=== PATIENT | female | born 1985 | race Hispanic/Latino ===

== ENCOUNTER 2017-09-17 13:52 | Day surgery (SDC) | payer MEDICAID, OTHER ==
[2017-09-17 14:29] VITALS: BP 120/71; TEMP 98.5; BMI 30.7
--- NOTE | 2017-09-17 14:52 | PDOC.LDHP ---
Labor and Delivery H&P Chief complaint: loss of fluid HPI: 32 yo at 39.0 wk by LMP/10.2 wk sono. Presents with CC of LOF that occurred at approximately 0700 today. Report movement and occasional contractions. Denies bloody discharge. No other concerns. complicated by MDD with self harm behavior and hx macrosomnia that resolved at 34.4 wk gestation. EFW at that time was 39.9%. States she was going through a divorce and custody issues during this . Current gestational age (weeks): 39 Due date: 09/24/17 Dating criteria: last menstrual period, first trimester ultrasound (10.2) Grav: 3 Para: 2 OB History Details: 2 prior vaginal deliveries. Current complications: none Abnormal US findings: Yes Past Medical History: MDD Current medications: pre- vitamins Previous surgical history: none Social history: none - Physical Exam Vital signs reviewed and normal: yes General: NAD, resting Heart: other Lungs: nonlabored breathing Abdomen: other Extremeties: trace edema FHT: category 2 (baseline 160, moderate variability, positive accel. No decel. borderline tachycardia with prolonged accelerations.) [place] contractions every: every 8-10 min - Vaginal Exam cm dilated: 3 Effacement: 50% Station: -3 - OB Labs Blood type: O RH: positive Antibody Screen: negative HIV: negative RPR: negative HEPSAg: negative 1 hour GCT: negative GBS: positive Urine drug screen: not done Rubella: immune - Assessment L&D Assessment: term rupture in membranes (r/o ROM.) - Plan -: Amnisure negative. Will order BPP and bolus LR 1L. <Gurvinder Gaspar - Last Filed: 09/17/17 14:47> <Jazmyn Salinas - Last Filed: 09/17/17 18:05> Allergies/Adverse Reactions: Allergies Allergy/AdvReac Type Severity Reaction Status Date / Time No Known Allergies Allergy Verified 09/17/17 14:29 Attending Addendum - Attending Addendum Date/Time: 09/17/17 1800 I personally evaluated the patient and discussed the management with Dr. Gaspar and Dr. Aguilar I agree with the History, Examination, Assessment and Plan documented above with any addition or exceptions noted below. 32 yo female at 39.0 wks presents for evaluation of ROM. Amnisure negative. BESS 8.8 cm. Speculum positive for lavell. No pooling. No ferning. FHT initially mild tachycardia to 165. IVF bolus x2 improved rate to 155. BPP 8/ 8. + movement. UDS negative. Significant bilateral edema. Urine protein negative. BP WNL. CMP pending for renal function. Ok for dc to home with precautions after CMP. Repeat SVE. Needs close follow up next week. AlinaMD <Jazmyn Salinas - Last Filed: 09/17/17 18:05>
[2017-09-17 14:59] LABS: Amnisure Test No Membranes Rupture (No Rupture)
[2017-09-17 15:00] LABS: Amnisure Internal Control QC ACCEPTABLE (ACCEPTABLE)
[2017-09-17] MEDS: Lactated Ringer's 1,000 ML IV SCH ×2 (15:15→15:55)
[2017-09-17] MEDS ORDERED: Lactated Ringer's 1,000 ML IV SCH (16:00)
--- NOTE | 2017-09-17 16:09 | ULT ---
NONSTRESS BIOPHYSICAL PROFILE: 09/17/17 HISTORY: Category II strip. COMPARISON: None. TECHNIQUE: Nonstress biophysical profile is performed. FINDINGS: Single intrauterine gestation. Cephalic presentation. Anterior placenta. Current study is not tailore d to assess for the presence or absence of previa. heart tones at the rate of 165 beats per minute. Amniotic fluid index is 8.8 cm. NONSTRESS BIOPHYSICAL PROFILE: movement - 2 tone - 2 breathing - 2 Amniotic fluid - 2 Total score 8 out of 8. IMPRESSION: Nonstress biophysical profile with a total score of 8 out of 8. POS: [facility]
[2017-09-17] MEDS ORDERED: hydrOXYzine 10 MG TAB PO SCH (17:00)
[2017-09-17 17:22] LABS: Bilirubin Negative (Negative); Blood, Urine Negative (Negative); Clarity CLEAR (Clear); Glucose, Urine (Dipstick) Negative (Negative); Nitrite Negative (Negative); Protein, Urine (Dipstick) Negative (Neg-Trace); Specific Gravity, Urine 1.014 (1.002-1.036)
[2017-09-17 17:27] LABS: Bacteria/HPF None Seen HPF (None Seen); Hyaline Casts/LPF 0-3 HYALINE CAST LPF (0-3 Hyaline); Pathc Cast-AUWi Flag 0.14 (0-2.49); RBC/HPF None Seen HPF (0-3); Squamous Epithelial 0-3 HPF (0-3)
[2017-09-17 17:33] LABS: Amphetamine Not Detected (NotDetected); Barbiturates Screen Not Detected (NotDetected); Benzodiazepine Screen Not Detected (NotDetected); Cocaine Metabolite Screen Not Detected (NotDetected); Medtox Control Line Valid? VALID (VALID); Medtox Reader # READER 4; Methadone Not Detected (NotDetected); Methamphetamine Not Detected (NotDetected); Opiate Screen Not Detected (NotDetected); Oxycodone Screen Not Detected (NotDetected); Phencyclidine (PCP) Not Detected (NotDetected); THC/Cannabinoid Screen Not Detected (NotDetected); Tricyclic Screen Not Detected (NotDetected)
[2017-09-17 17:37] LABS: Leukocyte Moderate (Negative); WBC/HPF 0-3 HPF (0-3)
[2017-09-17 19:09] LABS: Hemoglobin 8.6 g/dL (12.0-16.0); Mean Corpuscular HGB CONC 31.5 g/dL (32.0-36.0); Mean Corpuscular Hemoglobin 22.6 pg (27.0-31.0); Mean Corpuscular Volume 71.9 fL (78.0-98.0); Mean Platelet Volume 9.8 fL (7.4-10.4); Platelet Count 348 thou/uL (130-400); RBC Distribution Width 16.4 % (11.5-14.5); Red Blood Cell (RBC) Count 3.78 mill/uL (4.20-5.40); White Blood Cell (WBC) Count 7.5 thou/uL (4.8-10.8)
[2017-09-17 19:42] LABS: ALT (SGPT) 7 U/L (8-55); AST (SGOT) 15 U/L (5-34); Albumin 3.4 g/dL (3.5-5.0); Alkaline Phosphatase 278 U/L (40-150); Anion Gap 13 mmol/L (10-20); BUN (Urea Nitrogen) 10 mg/dL (7.0-18.7); Bilirubin, Total 0.4 mg/dL (0.2-1.2); Calc. Creatinine Clearance 156 mL/min (70-130); Calcium 8.5 mg/dL (7.8-10.44); Carbon Dioxide 20 mmol/L (22-29); Chloride 108 mmol/L (98-107); Estimated GFR-MDRD Greater than 90; Globulin 3.3 g/dL (2.4-3.5); Glucose 71 mg/dL (70-105); Potassium 4.3 mmol/L (3.5-5.1); Protein, Total 6.7 g/dL (6.0-8.3); Sodium 137 mmol/L (136-145)
[2017-09-17] MEDS ORDERED: Clotrimazole 2% 3 Day Vag Cr 22.2 GM TUBE VAG SCH (21:00)
== END 2017-09-17 18:35 | disposition home or self-care (01) ==
LOC: L&D/OP 13:52
PROVIDERS: ATTEND Student in an Organized Health Care Education/Training Program
DX: O99.89 Other specified diseases and conditions complicating pregnancy, childbirth and the puerperium (principal); N89.8 Other specified noninflammatory disorders of vagina; O99.343 Other mental disorders complicating pregnancy, third trimester; F32.9 Major depressive disorder, single episode, unspecified; Z91.5 Personal history of self-harm; Z3A.39 39 weeks gestation of pregnancy; Z79.899 Other long term (current) drug therapy
CPT/HCPCS: 76819; 80053; 80306; 81001; 84112; 85027; 96360; 96361; 99284

== ENCOUNTER 2017-09-18 22:14 | Inpatient (IN) | payer MEDICAID, OTHER, SELFPAY ==
[2017-09-18 22:46] VITALS: BMI 30.2
[2017-09-18] MEDS: Lactated Ringer's 1,000 ML IV SCH ×2 (23:25→23:50)
--- NOTE | 2017-09-18 23:58 | PDOC.LDHP ---
Labor and Delivery H&P Chief complaint: contractions HPI: Ms. Hay is a 32 yo at 39.1 by LMP/10.2w sono here for complaint of persistent contractions. She reports that her contractions have increased in frequency and pain since she was seen here last night. She was dx with yeast infection and has not been able to sweet pickle maker rx for clotrimazole. She denies any LOF but has had a little spotting today after cervical checks last night. She is feeling baby move as much as ever. She denies any fever or abdominal pain between contractions. Current gestational age (weeks): 39 (39.1) Due date: 09/24/17 Dating criteria: last menstrual period, first trimester ultrasound Grav: 3 Para: 2 OB History Details: complicated by MDD with history of self-harm as a teenager. PHQ-9 was 5 at start of and no SI/HI this . Stressors include ongoing divorce from father of first 2 children. H/o macrosomia in prior (9lb 8 oz). Iron deficiency anemia, has not been taking PO iron supplementation. Current complications: none Abnormal US findings: No Current medications: pre- vitamins, iron Previous surgical history: none Social history: none - Physical Exam Vital signs reviewed and normal: yes General: resting, breathing through contractions Heart: RRR (faint systolic murmur at L sternal border) Lungs: CTAB Abdomen: NTTP Extremeties: no edema FHT: category 1 (initially baseline 170, now 160/mod/+accel/no decel) [place] contractions every: 2-4 minutes - Vaginal Exam cm dilated: 3 (3.5) Effacement: 50% Station: -3 - OB Labs Blood type: O RH: positive Antibody Screen: negative HIV: negative RPR: negative HEPSAg: negative 1 hour GCT: negative GBS: positive Rubella: immune - Assessment 32 yo at 39.1 by LMP/10.2w sono here with contractions and tachycardia 1. Contractions - No cervical change since exam yesterday, contractions now more frequent - s/p 1L bolus, will give additional L and recheck at 2 hours - BPP/NST yesterday 10/26 - No additional leakage of fluid and normal movement 2. tachycardia - No maternal fever or abdominal pain/foul-smelling discharge - Improving with hydration 3. Yeast infection - Will give additional dose of clotrimazole as patient has not picked up rx 4. Anemia - Encouraged to take PO iron at home - Will monitor for acute blood loss at delivery 5. GBS positive - Will need intrapartum PCN 6. MDD - Mood stable, no SI/HI Dispo: pending FHT and repeat cervical check <Tanisha Talamantes - Last Filed: 09/19/17 00:12> <Jorge Feliciano - Last Filed: 09/19/17 00:32> Allergies/Adverse Reactions: Allergies Allergy/AdvReac Type Severity Reaction Status Date / Time No Known Allergies Allergy Verified 09/18/17 22:46 Attending Addendum - Attending Addendum Date/Time: 09/19/17 0031 I personally evaluated the patient and discussed the management with Dr. Talamantes. I agree with the History, Examination, Assessment and Plan. <Jorge Feliciano - Last Filed: 09/19/17 00:32>
[2017-09-19] MEDS ORDERED: Clotrimazole 2% 3 Day Vag Cr 22.2 GM TUBE VAG SCH (00:15)
[2017-09-19] MEDS ORDERED: Ondansetron HCl/PF 4 MG/2 ML Vial IVP PRN (01:13)
[2017-09-19] MEDS ORDERED: Lidocaine 1% (PF) 30 ML VIAL SC PRN (01:13)
[2017-09-19] MEDS ORDERED: Promethazine HCl 25 MG/ML VIAL IM PRN (01:13)
[2017-09-19] MEDS ORDERED: Butorphanol Tartrate 1 MG/ML VIAL SLOW IVP PRN (01:13)
[2017-09-19] MEDS ORDERED: NS / Oxytocin 40 units/1000ml 1,000 ML IV PRN (01:13)
[2017-09-19] MEDS ORDERED: Penicillin G Potassium 5 MILL.UNITS in Sodium Chloride 0.9% 100 ML IVPB SCH (01:15)
--- NOTE | 2017-09-19 01:17 | PDOC.LDPN ---
Labor & Delivery Progress Note - Subjective Subjective: comfortable - Objective Vital signs reviewed and normal: yes General: breathing through contractions Uterine fundus: non tender Dilation: 4.5 Effacement: 50% Station: -3 FHT: category 1 (160/mod/+accel/no decel) [employer] contractions every: 4 Resuscitative measures: other - Assessment (1) Current Visit: Yes Status: Acute (2) GBS (group B Streptococcus carrier), +RV culture, currently Code(s): O99.820 - STREPTOCOCCUS B CARRIER STATE COMPLICATING Current Visit: Yes Status: Acute Plan: continue plan of care -: 32 yo at 39.2 by LMP/10.2w sono here with contractions and tachycardia 1. Labor - Contractions with cervical change - BPP/NST yesterday 10/26 - GBS carrier as below, will admit and start GBS prophylaxis 2. tachycardia - No maternal fever or abdominal pain/foul-smelling discharge - Improving with hydration - Monitor for signs of chorio 3. Yeast infection - Will give additional dose of clotrimazole as patient has not picked up rx 4. Anemia - Encouraged to take PO iron at home - Will monitor for acute blood loss at delivery - H&H at this time 5. GBS positive - Will need intrapartum PCN 6. MDD - Mood stable, no SI/HI 7. History of macrosomia Dispo: admit to L&D for expectant management and GBS prophylaxis <Tanisha Talamantes - Last Filed: 09/19/17 01:18> Attending Addendum - Attending Addendum Date/Time: 09/19/17 0122 I personally evaluated the patient and discussed the management with Dr. Talamantes. I agree with the History, Examination, Assessment and Plan documented above. <Jorge Feliciano - Last Filed: 09/19/17 01:23>
[2017-09-19 01:38] LABS: Hemoglobin 8.3 g/dL (12.0-16.0); Mean Corpuscular Hemoglobin 22.9 pg (27.0-31.0); Mean Corpuscular Volume 71.4 fL (78.0-98.0); Mean Platelet Volume 9.1 fL (7.4-10.4); Platelet Count 320 thou/uL (130-400); RBC Distribution Width 16.3 % (11.5-14.5); Red Blood Cell (RBC) Count 3.63 mill/uL (4.20-5.40); White Blood Cell (WBC) Count 9.6 thou/uL (4.8-10.8)
[2017-09-19 02:14] LABS: HBSAg Index 0.21 S/CO (0-0.99); Hep B Surf Ag Non-Reactive S/CO (NonReactive)
[2017-09-19] MEDS: Lactated Ringer's 1,000 ML IV SCH (05:00)
[2017-09-19] MEDS: Penicillin G 2.5 MILL.units 2.5 MILL.UNITS in Premix Bag 1 BAG IVPB SCH (05:20)
--- NOTE | 2017-09-19 05:31 | PDOC.LDPN ---
Labor & Delivery Progress Note - Subjective Subjective: painful contractions - Objective Vital signs reviewed and normal: yes General: breathing through contractions Dilation: 6 Effacement: 75% Station: -2 FHT: category 1 (160/mod/+accel/no decels) [place] contractions every: 2-4 minutes - Assessment (1) Current Visit: Yes Status: Acute (2) GBS (group B Streptococcus carrier), +RV culture, currently Code(s): O99.820 - STREPTOCOCCUS B [employer]RIER STATE COMPLICATING Current Visit: Yes Status: Acute Plan: continue plan of care -: 32 yo at 39.2 by LMP/10.2w sono now in active labor 1. Labor - Making cervical change, continue expectant management - BPP/NST yesterday 10/26 - GBS carrier as below, getting 2nd dose PCN now 2. tachycardia, resolved - No maternal fever or abdominal pain/foul-smelling discharge - Improving with hydration - Monitor for signs of chorio 3. Yeast infection - Will treat if still symptomatic 4. Anemia - Encouraged to take PO iron at home - Will monitor for acute blood loss at delivery - H&H 8.3/25.9 5. GBS positive - Getting 2nd dose PCN now 6. MDD - Mood stable, no SI/HI 7. History of macrosomia Dispo: Continue expectant management <Tanisha Talamantes - Last Filed: 09/19/17 05:34> Attending Addendum - Attending Addendum Date/Time: 09/19/17 0614 I have discussed the management with Dr. Talamantes. I agree with the History, Examination, Assessment and Plan. <Jorge Feliciano - Last Filed: 09/19/17 06:15>
--- NOTE | 2017-09-19 07:11 | PDOC.LDPN ---
Labor & Delivery Progress Note - Subjective Subjective: other (32 yr old at 39.2w presented with Ctx; admitted for active labor) - Objective Vital signs reviewed and normal: yes General: breathing through contractions Uterine fundus: tender to palpation Dilation: 7 Effacement: 90% Station: -1 FHT: category 1 [place] contractions every: 1-2 min - Assessment (1) GBS (group B Streptococcus carrier), +RV culture, currently Code(s): O99.820 - STREPTOCOCCUS B [employer]RIER STATE COMPLICATING Current Visit: Yes Status: Acute (2) Current Visit: Yes Status: Acute Qualifiers: Weeks of gestation: 39 weeks Qualified Code(s): Z3A.39 - 39 weeks gestation of -: 32 yr old at 39.2w presented in active labor. GBS +. Patient is progressing well. 1. SIUP - continue labor checks every 2 hours. Continue to monitor baby via NST 2. GBS + - continue penicillin q4 hours till delivery
[2017-09-19] MEDS: Misoprostol 200 MCG TAB ONE ×2 (08:02→08:50)
--- NOTE | 2017-09-19 08:39 | PDOC.OPDEL ---
OB Operative/Delivery Note Delivery Dr/Surgeon: Sherita Plummer MD; Rima Chris MD; Dr. Feliciano Pre-Delivery Diagnosis: active labor Procedure/Post Delivery Dx: spontaneous vaginal delivery Weeks gestation: 39 (39w2d) Anesthesia: local - Findings A Sex: male - 1 min: 9 - 5 min: 9 - Additional Findings/Plan Placenta delivered: spontaneous Repaired Obstetrical Laceration: 2nd degree Estimated blood loss: 400 mL Compilations/Other Findings: This is a 32 year old female @ 81fsh5w who delivered a viable M at 0756 on 09/19/17. Following an uneventful antepartum course after receiving 2 doses of penicillin for GBS +, a vigorous M was delivered over an intact perineum in the occipitoanterior position. Anterior Shoulder and then remainder of the body delivered. There was a nuchal cord X2. The head was held down and mouth and nares were bulb suctioned. Cord clamped and cut and cord blood collected. Placenta delivered intact with a 3 vessel cord noted. Fundal massage was performed and the fundus was firm. The cervix and vagina were inspected and found to have a 2nd degree laceration that was repaired with 2.0 chromic in the usual fashion with good approximation and hemostasis after a local anesthetic of 1 % lidocaine was injected at site. went to nursery in good condition for routine care. Apgars were 9/9 at 1 & 5 minutes, respectively. Patient tolerated delivery well and went to after routine recovery/care. <Rima Chris - Last Filed: 09/19/17 08:37> Attending Addendum - Attending Addendum Date/Time: 09/22/17 0803 I was present for delivery with Dr. Chris. I agree with the History, Examination, Assessment and Plan. <Jorge Feliciano - Last Filed: 09/22/17 08:04>
[2017-09-19] MEDS ORDERED: Misoprostol 200 MCG TAB ONE ×3 (08:44→08:49)
[2017-09-19] MEDS ORDERED: Adacel (T-DAP) 0.5 ML VIAL IM ONE (08:58)
[2017-09-19] MEDS ORDERED: Preparation H Ointment 28 GM TUBE PR PRN (08:58)
[2017-09-19] MEDS ORDERED: Bisacodyl 10 MG SUPP PR PRN (08:58)
[2017-09-19] MEDS ORDERED: Lanolin Ointment 7 GM TUBE TOP PRN (08:58)
[2017-09-19] MEDS ORDERED: Milk Of Magnesia 30 ML UDCUP PO PRN (08:58)
[2017-09-19] MEDS ORDERED: NS / Oxytocin 40 units/1000ml 1,000 ML IV SCH (09:00)
[2017-09-19] MEDS ORDERED: Ibuprofen 800 MG TAB PO SCH (09:15)
[2017-09-19] MEDS: HYDROcodone/Acetaminophen 5/325 mg Tablet PO PRN ×2 (12:55→17:21)
[2017-09-19] MEDS: Prenatal Vitamin 1 TAB PO SCH (15:05)
[2017-09-19] MEDS: Docusate Calcium (SURFAK) 240 MG CAP PO SCH ×2 (15:05→21:29)
[2017-09-19] MEDS: Ibuprofen 800 MG TAB PO SCH ×2 (15:34→21:28)
[2017-09-19] MEDS: Ferrous Sulfate 325 MG TAB PO SCH (17:20)
[2017-09-19 19:37] LABS: Hemoglobin 7.4 g/dL (12.0-16.0)
[2017-09-20] MEDS: Lactated Ringer's 1,000 ML IV SCH (01:29)
[2017-09-20] MEDS: Clotrimazole 2% 3 Day Vag Cr 22.2 GM TUBE VAG SCH ×2 (01:29→23:34)
[2017-09-20] MEDS: Ibuprofen 800 MG TAB PO SCH ×3 (04:42→21:40)
[2017-09-20] MEDS: HYDROcodone/Acetaminophen 5/325 mg Tablet PO PRN ×2 (04:42→09:07)
--- NOTE | 2017-09-20 06:31 | PDOC.PP ---
Post Progress Note Post Day #: 1 Subjective: Patient is a 32 yo F @ 39w2d who delivered baby boy @ 0756 on 09/19/17. She is post day 1. EBL during delivery was 400mL with a 2nd degree lac that was repaired. Patient reports moderate abdominal pain that is relieved with pain medication. She endorses some swelling in her legs that has improved. She is voiding well and passing gas. She has been tolerating diet. Patient has been ambulating some, and has been encouraged to walk some more today. She hsa been breast feeding baby well. She denies any symptoms of headache, blurry vision, fever, N/V/D. PO intake tolerated: yes Flatus: yes Ambulation: yes Vital Signs (12 hours) Temp Pulse Resp BP 09/20/17 04:30 97.6 F 73 20 137/69 09/20/17 00:00 97.7 F 83 20 121/58 L 09/19/17 20:00 98.0 F 87 18 123/64 Weight Weight 74.843 kg - Physical Examination General: NAD Cardiovascular: no m/r/g, RRR Respiratory: clear to auscultation bilaterally, non-labored breathing Abdominal: + bowel sounds, lochia (minimal) Fundus firm & at: 5cm below umbilicus Psychiatric: normal affect Result Diagrams: 09/19/17 19:28 Additional Labs: Post Labs Blood Type O POSITIVE 09/18/17 23:25 Hep Bs Antigen Non-Reactive S/CO (NonReactive) 09/18/17 23:25 (1) GBS (group B Streptococcus carrier), +RV culture, currently Code(s): O99.820 - STREPTOCOCCUS B [employer]RIER STATE COMPLICATING Status : Acute (2) Status: Acute QualifierTitle: Weeks of gestation: 39 weeks Qualified Code(s): Z3A.39 - 39 weeks gestation of - Assessment/Plan Patient is a 32 yo F post day 1. 1. Term delivery - due to difficulty controlled pain plan on keeping until tomorrow - parents request circumcision for baby today - continue [place] as needed - encouraged to ambulate to help with swollen legs 2. Anemia of - hgb today is 7.4 - continue giving iron + stool softener - monitor vital signs <Rima Chris - Last Filed: 09/20/17 06:27> Vital Signs (12 hours) Temp Pulse Resp BP 09/20/17 04:30 97.6 F 73 20 137/69 09/20/17 00:00 97.7 F 83 20 121/58 L 09/19/17 20:00 98.0 F 87 18 123/64 Weight Weight 165 lb Result Diagrams: 09/19/17 19:28 Additional Labs: Post Labs Blood Type O POSITIVE 09/18/17 23:25 Hep Bs Antigen Non-Reactive S/CO (NonReactive) 09/18/17 23:25 <Elizabeth Woods - Last Filed: 09/20/17 07:36> Attending Addendum - Attending Addendum Date/Time: 09/20/1734 I personally evaluated the patient and discussed the management with Dr. Chris. I agree with the History, Examination, Assessment and Plan documented above with any addition or exceptions noted below. Significant pain despite with average laceration (and pain preceding delivery), will get pelvic x-ray. Encourage ambulation today. Likely d/c home tomorrow. <Elizabeth Woods - Last Filed: 09/20/17 07:36>
--- NOTE | 2017-09-20 08:42 | PDOC.EVN ---
Event Note - Event Note Event Note: PPD 1 OBGYN note Pelvic XRAY I have reviewed the patient's pelvic XRAY with Elizabeth Woods at AM check out. Appears to have pubic symphsis separation/diastasis. Film official read pending: I have requested from the new phd internship: Ortho consult for possible hip binding PT eval May need low dose lovenox if mobility restricted Will follow
--- NOTE | 2017-09-20 08:52 | PDOC.PP ---
Post Progress Note Post Day #: 1 Subjective: Patient is a 32 yo F who delivered via at 39.2wks on 09/19/17. EBL was 400mL and 2nd degree lac repaired. Today patient continues to complain of trouble ambulating and pain with walking. She said it is improved from yesterday. Her pain is somewhat controlled with her pain medication. She also notes that her legs seem swollen, but his has also improved. Patient notes minimal bleeding from below. She is passing gas and voiding normally. She is tolerating her diet well. She has been breast feeding successfully. She denies any other symptoms such as fever, headache, or vision changes. PO intake tolerated: yes Flatus: yes Ambulation: yes Vital Signs (12 hours) Temp Pulse Resp BP 09/20/17 07:55 97.9 F 77 18 114/66 09/20/17 04:30 97.6 F 73 20 137/69 09/20/17 00:00 97.7 F 83 20 121/58 L Weight Weight 74.843 kg - Physical Examination General: NAD Cardiovascular: no m/r/g, RRR Respiratory: clear to auscultation bilaterally, non-labored breathing Abdominal: + bowel sounds, lochia (minimal) Fundus firm & at: the umbilicus Extremities: negative homans (B) (bilateral 1+ edema in legs) Psychiatric: normal affect Result Diagrams: 09/19/17 19:28 Additional Labs: Post Labs Blood Type O POSITIVE 09/18/17 23:25 Hep Bs Antigen Non-Reactive S/CO (NonReactive) 09/18/17 23:25 (1) GBS (group B Streptococcus carrier), +RV culture, currently Code(s): O99.820 - STREPTOCOCCUS B CARRIER STATE COMPLICATING Status : Acute (2) Status: Acute Qualifiers: Weeks of gestation: 39 weeks Qualified Code(s): Z3A.39 - 39 weeks gestation of (3) (spontaneous vaginal delivery) Code(s): O80 - ENCOUNTER FOR FULL-TERM UNCOMPLICATED DELIVERY Status: Acute
[2017-09-20] MEDS: Ferrous Sulfate 325 MG TAB PO SCH ×2 (09:07→18:40)
[2017-09-20] MEDS: Docusate Calcium (SURFAK) 240 MG CAP PO SCH ×2 (09:07→21:40)
[2017-09-20] MEDS: Prenatal Vitamin 1 TAB PO SCH (09:07)
--- NOTE | 2017-09-20 09:20 | RAD ---
AP PELVIS ONE VIEW: History: Pelvic pain. FINDINGS/IMPRESSION: Visualized bowel gas pattern is nonspecific. Widening of the pubic symphysis and diffuse soft tissue density projecting over the pelvis are likely related to an enlarged uterus and recent delivery. No a bnormal calcifications or radiopaque foreign bodies are apparent. POS: [facility]
--- NOTE | 2017-09-20 13:40 | PDOC.EVN ---
Event Note - Event Note Event Note: OBGYN NOte: Discussed case with Dr Pitts (Ortho) in person. As separation is less than 2cm..no binding necessary. No other direct intervention needed. OK to eight bear. I discussed this with the patient at bedside. I ordered PT consult to get a walker or messer to help. Ordered SCDs while in bed.
--- NOTE | 2017-09-20 13:58 | CON ---
DATE OF CONSULTATION: 09/20/2017 CONSULTING PHYSICIAN: Dr. Rene Davis HISTORY OF PRESENT ILLNESS: We were asked to see patient by HUMAN RESOURCES TECHNICIAN. The patient delivered her baby yesterday morning without complications, but once upright and walking she complains of significant pe lvic pain. Pelvis x-ray was ordered and found to have a 19 mm widening of the pubic symphysis. The patient currently is resting in bed in no acute distress, holding the baby. PAST MEDICAL HISTORY/SURGICAL HISTORY/CURRENT MEDICATIONS: All of these can all be gleaned from her HUMAN RESOURCES TECHNICIAN admission notes. REVIEW OF SYSTEMS: Pelvic pain, otherwise no other complaints. PHYSICAL EXAMINATION: GENERAL: Well-nourished female, awake, alert, in no acute distress. Speech clear. Answers question s appropriately. Alert and oriented x3. EXTREMITIES: Lower extremities; she is moving feeling these well. She still has some mild pelvic pa in at rest, but it is much better at rest that it is with being upright. X-rays show widening of the pubic symphysis. PLAN: Dr. Davis and myself spoke with the patient. He reviewed the literature that shows there i s not much in regards to how this finding or surgical repair to do with a 19 mm separation. There is some literature at 40-60 mm of separation, but we reassured the patient, went over these results wit h her and it should get better over time. She can get up and walk as she is able to tolerate. We ex plained this to the patient. She understands the plan. We do not think she will need any orthopedic intervention for her current situation. Hopefully, her symptoms will resolve for the next few days.
--- NOTE | 2017-09-21 01:42 | PDOC.EVN ---
Event Note - Event Note Event Note: @0140: PT has seen her and was given a walker. Case management to see if she can get a walker through her ins coverage.Per RN, she is ambulating well with the walker.
--- NOTE | 2017-09-21 02:09 | PDOC.PP ---
Post Progress Note Post Day #: 2 Subjective: ambulating well with the walker PO intake tolerated: yes Flatus: yes Ambulation: yes Vital Signs (12 hours) Temp Pulse Resp BP 09/20/17 22:00 98.1 F 88 18 121/76 Weight Weight 165 lb - Physical Examination General: NAD Cardiovascular: no m/r/g Abdominal: + bowel sounds, lochia Extremities: negative homans (B) Neurological: no gross focal deficits Psychiatric: A&Ox3, normal affect Result Diagrams: 09/19/17 19:28 Additional Labs: Post Labs Blood Type O POSITIVE 09/18/17 23:25 Hep Bs Antigen Non-Reactive S/CO (NonReactive) 09/18/17 23:25 (1) Anemia Code(s): D64.9 - ANEMIA, UNSPECIFIED Status: Acute Qualifiers: Anemia type: other cause Other causes of anemia: sideroblastic, 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 Anemia with HCt 22 but was 25 on admit. No heavy VB now. OK for discharge after case management sees her to see if a walker can be ordered for her. Recommended to continue with her vitamins for her iron support. Will follow up with PNC. Ambulation encouraged. Anticipate home later today. OB DISCHARGE SUMMARY COMPLETED in record
--- NOTE | 2017-09-21 02:12 | PDOC.EVN ---
Event Note - Event Note Event Note: DISCHARGE NOTE: OB Summary sheet completed in record Admit: 09/18/17 Discharge: 09/21/17 ( day 2) Diagnosis: S/P at term Pubic bone minor separation noted anemia with admission HCT 25, 09/11 Services consulted: Ortho, case management
--- NOTE | 2017-09-21 05:50 | PDOC.PP ---
Post Progress Note Post Day #: 2 Subjective: Patient is a 32 yo F who delivered a baby boy on 09/19/17 @ 39.2 wks via . Patient has been complaining of pain while ambulating and was found to have a widened pubic symphysis yesterday on pelvic x-ray. Her pain is improved today and is being controlled with [place]. She is ambulating with the assistance of a walker. Otherwise the patient is doing well, tolerating diet, voiding, passing gas and successfully. PO intake tolerated: yes Flatus: yes Ambulation: yes Vital Signs (12 hours) Temp Pulse Resp BP 09/20/17 22:00 98.1 F 88 18 121/76 Weight Weight 74.843 kg - Physical Examination General: NAD Cardiovascular: no m/r/g, RRR Respiratory: clear to auscultation bilaterally, non-labored breathing Abdominal: + bowel sounds, lochia (minimal) Extremities: negative homans (B) Psychiatric: normal affect Result Diagrams: 09/19/17 19:28 Additional Labs: Post Labs Blood Type O POSITIVE 09/18/17 23:25 Hep Bs Antigen Non-Reactive S/CO (NonReactive) 09/18/17 23:25 (1) GBS (group B Streptococcus carrier), +RV culture, currently Code(s): O99.820 - STREPTOCOCCUS B [employer]RI[employer] STATE COMPLICATING Status : Acute (2) Status: Acute Qualifiers: Weeks of gestation: 39 weeks Qualified Code(s): Z3A.39 - 39 weeks gestation of (3) (spontaneous vaginal delivery) Code(s): O80 - ENCOUNTER FOR FULL-TERM UNCOMPLICATED DELIVERY Status: Acute - Assessment/Plan Patient is a 32 yr old female who delivered on 09/19/17 via @ 39.2wks. Patient has been recovering well and has no concerns at this time. 1. - patient is recovering well and will be discharged today - continue vitamins - continue ibuprofen as needed - Follow up at [facility] 2. Anemia of - continue iron and stool softener at home 3. Widened Pubic Symphysis - case management to get patient a walker to assist with walking
[2017-09-21] MEDS: Ibuprofen 800 MG TAB PO SCH ×2 (06:21→14:48)
[2017-09-21 07:53] VITALS: BP 106/57; TEMP 97.9
[2017-09-21] MEDS: Ferrous Sulfate 325 MG TAB PO SCH (08:59)
[2017-09-21] MEDS: Prenatal Vitamin 1 TAB PO SCH (08:59)
[2017-09-21] MEDS: Docusate Calcium (SURFAK) 240 MG CAP PO SCH (08:59)
[2017-09-21] MEDS: HYDROcodone/Acetaminophen 5/325 mg Tablet PO PRN (10:46)
[2017-09-21] MEDS: Penicillin G 2.5 MILL.units 2.5 MILL.UNITS in Premix Bag 1 BAG IVPB SCH (14:04)
== END 2017-09-21 15:45 | disposition home or self-care (01) | DRG 774 ==
LOC: L&D/OP 22:14 → L&D 09-19 00:52 → 3SW 09-19 10:36
PROVIDERS: ADMIT Obstetrics & Gynecology; ATTEND Obstetrics & Gynecology
PROC: 10E0XZZ Delivery of Products of Conception, External Approach (ICD-10-PCS; principal; 2017-09-19)
PROC: 0KQM0ZZ Repair Perineum Muscle, Open Approach (ICD-10-PCS; 2017-09-19)
DX: O99.824 Streptococcus B carrier state complicating childbirth (principal); O98.82 Other maternal infectious and parasitic diseases complicating childbirth; O76 Abnormality in fetal heart rate and rhythm complicating labor and delivery; B37.9 Candidiasis, unspecified; O99.02 Anemia complicating childbirth; D64.9 Anemia, unspecified; O99.344 Other mental disorders complicating childbirth; F32.9 Major depressive disorder, single episode, unspecified; O70.1 Second degree perineal laceration during delivery; O69.81X0 Labor and delivery complicated by cord around neck, without compression, not applicable or unspecified; O71.6 Obstetric damage to pelvic joints and ligaments; Z3A.39 39 weeks gestation of pregnancy; Z37.0 Single live birth
CPT/HCPCS: 36415; 72170; 85014; 85018; 85027; 86850; 86900; 86901; 87340; 99285; G8978-GP-CL; G8979-GP-CJ; J2001; J2540; J7050